=== PATIENT | male | born 1955 | race Caucasian/White ===

== ENCOUNTER → 2025-03-28 | Emergency (ER) | payer OTHER ==
[2025-03-28 10:21] LABS: #Basophils 0.05 10x3/uL (0.0-0.2); #Eosinophils 0.67 10x3/uL (0.0-0.5); #Monocytes 0.87 10x3/uL (0.0-1.1); #Neutrophils 8.31 10x3/uL (1.5-8.4); %Basophils 0.4 % (0.0-2.0); %Eosinophils 5.6 % (0.0-6.0); %Lymphocytes 16.3 % (18.0-47.0); %Monocytes 7.3 % (0.0-10.0); %Neutrophils 70.1 % (40.0-75.0); Hematocrit 35.1 % (38.8-50.0); Hemoglobin 11.7 g/dL (13.5-17.5); Mean Corpuscular Hemoglobin 30.2 pg (27.0-33.0); Mean Corpuscular Volume 90.7 fL (81.2-95.1); Platelet Count 330 10x3/uL (150-450); Red Blood Cell (RBC) Count 3.87 10x6/uL (4.32-5.72); White Blood Cell (WBC) Count 11.87 10x3/uL (3.5-10.5)
[2025-03-28 10:42] LABS: ALT (SGPT) 14 U/L (Less than 45); AST (SGOT) 29 U/L (11-34); Albumin 2.4 g/dL (3.1-4.5); Alkaline Phosphatase 86 U/L (40-110); Anion Gap 12 mmol/L (10-20); BUN (Urea Nitrogen) 11 mg/dL (8.4-25.7); Bilirubin, Total 0.4 mg/dL (0.3-1.2); Calc. Creatinine Clearance 0 mL/min (70-130); Calcium 8.7 mg/dL (7.8-10.44); Carbon Dioxide 25 mmol/L (23-31); Chloride 107 mmol/L (98-107); Globulin 4.0 g/dL (2.4-3.5); Glucose 99 mg/dL (83-110); Lipase 11 U/L (8-78); Potassium 4.1 mmol/L (3.5-5.1); Sodium 140 mmol/L (136-145)
[2025-04-01 06:47] LABS: #Basophils 0.06 10x3/uL (0.0-0.2); #Eosinophils 0.94 10x3/uL (0.0-0.5); #Monocytes 1.04 10x3/uL (0.0-1.1); #Neutrophils 10.07 10x3/uL (1.5-8.4); %Basophils 0.4 % (0.0-2.0); %Eosinophils 6.6 % (0.0-6.0); %Lymphocytes 15.2 % (18.0-47.0); %Monocytes 7.3 % (0.0-10.0); %Neutrophils 70.2 % (40.0-75.0); Hematocrit 37.9 % (38.8-50.0); Hemoglobin 12.4 g/dL (13.5-17.5); Mean Corpuscular Hemoglobin 29.8 pg (27.0-33.0); Mean Corpuscular Volume 91.1 fL (81.2-95.1); Platelet Count 329 10x3/uL (150-450); Red Blood Cell (RBC) Count 4.16 10x6/uL (4.32-5.72); White Blood Cell (WBC) Count 14.33 10x3/uL (3.5-10.5)
[2025-04-01 06:48] LABS: ALT (SGPT) 11 U/L (Less than 45); AST (SGOT) 33 U/L (11-34); Albumin 2.7 g/dL (3.1-4.5); Alkaline Phosphatase 94 U/L (40-110); Anion Gap 14 mmol/L (10-20); BUN (Urea Nitrogen) 12 mg/dL (8.4-25.7); Bilirubin, Total 0.5 mg/dL (0.3-1.2); Calc. Creatinine Clearance 0 mL/min (70-130); Calcium 9.4 mg/dL (7.8-10.44); Carbon Dioxide 26 mmol/L (23-31); Chloride 105 mmol/L (98-107); Globulin 4.7 g/dL (2.4-3.5); Glucose 115 mg/dL (83-110); Lipase 14 U/L (8-78); Potassium 3.7 mmol/L (3.5-5.1); Sodium 141 mmol/L (136-145)
[2025-04-01 06:52] LABS: Glucose, Urine (Dipstick) Normal (Negative); Leukocyte Negative (Negative); Protein, Urine (Dipstick) 15 mg/dl (Neg-Trace); Specific Gravity, Urine 1.010 (1.005-1.030)
[2025-04-01 06:53] LABS: Bacteria/HPF None Seen HPF (None Seen); RBC/HPF None Seen HPF (0-3); WBC/HPF None Seen HPF (0-3)
== END ==
LOC: CSHERS 04:55
DX: R19.03 Right lower quadrant abdominal swelling, mass and lump (principal); K21.9 Gastro-esophageal reflux disease without esophagitis; I25.10 Atherosclerotic heart disease of native coronary artery without angina pectoris; I10 Essential (primary) hypertension; J44.9 Chronic obstructive pulmonary disease, unspecified; E78.5 Hyperlipidemia, unspecified; Z79.82 Long term (current) use of aspirin; Z79.51 Long term (current) use of inhaled steroids; Z79.899 Other long term (current) drug therapy
CPT/HCPCS: 36415; 74177; 80053; 83605; 83690; 85025

== ENCOUNTER 2025-05-17 01:26 | Emergency (ER) | payer OTHER ==
[2025-05-17 02:22] LABS: ALT (SGPT) 35 U/L (Less than 45); AST (SGOT) 86 U/L (11-34); Albumin 1.8 g/dL (3.1-4.5); Alkaline Phosphatase 138 U/L (40-110); Anion Gap 14 mmol/L (10-20); BUN (Urea Nitrogen) 16 mg/dL (8.4-25.7); Bilirubin, Total 0.9 mg/dL (0.3-1.2); Calc. Creatinine Clearance 0 mL/min (70-130); Calcium 8.4 mg/dL (7.8-10.44); Carbon Dioxide 24 mmol/L (23-31); Chloride 102 mmol/L (98-107); Globulin 3.8 g/dL (2.4-3.5); Glucose 120 mg/dL (83-110); Potassium 4.3 mmol/L (3.5-5.1); Sodium 136 mmol/L (136-145)
[2025-05-17 02:47] LABS: Hematocrit 29.7 % (38.8-50.0); Hemoglobin 10.1 g/dL (13.5-17.5); Mean Corpuscular Hemoglobin 29.8 pg (27.0-33.0); Mean Corpuscular Volume 87.6 fL (81.2-95.1); Platelet Count 91 10x3/uL (150-450); Red Blood Cell (RBC) Count 3.39 10x6/uL (4.32-5.72); White Blood Cell (WBC) Count 2.84 10x3/uL (3.5-10.5)
[2025-05-17 02:50] LABS: MDiff Complete? YES; Platelet Adequacy Comment Appears Decreased; RBC Morphology Within Normal Limits
[2025-05-17] MEDS ORDERED: Ketorolac Tromethamine 30 MG (1 mL) VIAL ONE (02:50)
[2025-05-17 03:23] LABS: Actual Bicarbonate (HCO3v) 25.6 mEq/L (22-28); Analyzer IN Cardio CS ER; Base Excess 1.5 mEq/L (-2 - +2); Calcium, Ionized (venous) 1.12 mmol/L (1.16-1.32); Chloride (VBG) 101 mmol/L (98-106); Hematocrit-VBG 33 % (42.0-52.0); Hemoglobin (Hb) 11.1 g/dL (12.6-17.4); Potassium (VBG) 3.97 mmol/L (3.70-5.30); Puncture Site Other Site; RapidComm Collect By LAB; Sodium 133 mmol/L (133-146)
[2025-05-17 03:35] LABS: Troponin I 0.010 ng/mL (< 0.028)
[2025-05-17] MEDS ORDERED: Azithromycin 500 MG VIAL ONE (05:37)
[2025-05-17] MEDS ORDERED: cefTRIAXone (ROCEPHIN) 2 GM VIAL ONE (05:37)
[2025-05-17] MEDS ORDERED: Benzonatate 100 MG CAP ONE (06:01)
== END 2025-05-17 08:40 | disposition short-term general hospital (02) ==
LOC: EEVIPCON 01:26 → CSHERS 01:26
DX: R09.02 Hypoxemia (principal); J18.9 Pneumonia, unspecified organism; K21.9 Gastro-esophageal reflux disease without esophagitis; I25.10 Atherosclerotic heart disease of native coronary artery without angina pectoris; J44.9 Chronic obstructive pulmonary disease, unspecified; I10 Essential (primary) hypertension; E78.00 Pure hypercholesterolemia, unspecified; Z79.82 Long term (current) use of aspirin; Z79.51 Long term (current) use of inhaled steroids; Z79.899 Other long term (current) drug therapy
CPT/HCPCS: 36415; 71045; 80053; 82805; 83605; 83880; 84484; 85025; 87040; 87428; 93005; 96374; 96375; J0456; J0696; J1885